=== PATIENT | male | born 1960 | race Caucasian/White ===

== ENCOUNTER → 2017-12-18 | Outpatient (CLI) | payer BC ==
[2017-12-18 14:59] VITALS: RESP 16; BMI 45.6
--- NOTE | 2017-12-18 15:41 | P.HPBAR ---
Bariatric H&P - History & Physicial H&P Date: 12/18/17 History & Physicial: Visit/CC: initial visit Patient initial contact: Initial weight: 148.381 kg Initial weight in pounds: 327.13 Height: 5 ft 11 in Initial BMI: 45.6 Last weight: Current weight: 148.381 kg Current weight in pounds: 327.13 Current BMI: 45.6 [place] body weight (based on NIH guidelines): 78.018 kg Excess body weight loss: 0.0% The patient is a 57 year-old M who presents for Bariatric Assessment. The patient presents today for new patient consultation for sleeve gastrectomy. Patient has had lifetime process obesity. His current BMI is 46. His main medical condition is a type 2 diabetes. His has a history of sleeve gastrectomy. Past Medical History Past Medical History: Cancer, Diabetes Mellitus Additional Past Medical History / Comment(s): nonhodgkins lymphoma History of Any Multi-Drug Resistant Organisms: None Reported Past Surgical History: Hernia Repair Past Anesthesia/Blood Transfusion Reactions: No Reported Reaction Smoking Status: Never smoker Surgical - Exam Vital Signs Resp 16 12/18/17 14:51 - General well developed, no distress - Eyes PERRL - ENT normal pinna - Neck no masses - Respiratory normal expansion - Cardiovascular Rhythm: regular - Abdomen Abdomen: soft, non tender Bariatric Assessment & Plan Plan: Morbid obesity with severe coronary disease. Patient's BMI is 46. I had a lengthy discussion regarding sleeve gastrectomy. I discussed with him the risks and benefits of procedure including gastric staple line leak, perforation obstruction. I also discussed the risk of reflux. The patient will see his PCP for medical clearance. He'll undergo EGD. He'll follow-up in clinic in 1 month. Bariatric Checklist Checklist: Plan: Checklist: EGD: 1. Hiatal hernia: 2. H. Pylori: HgbA1c: Vitamin D: Smoking: Never smoker Primary care physician referral: Psychiatry clearance: Cardiology clearance: Sleep study: Diet journal: VTE risk score: VTE risk level: Rehab needs at discharge:
[2017-12-18 16:50] LABS: HCT 46.8 % (39.0-53.0); HGB 15.6 gm/dL (13.0-17.5); MCH 29.6 pg (25.0-35.0); MCHC 33.2 g/dL (31.0-37.0); Mean Platelet Volume 7.5; Platelet Count 176 k/uL (150-450); RBC 5.26 m/uL (4.30-5.90); RDW 13.9 % (11.5-15.5); WBC 5.4 k/uL (3.8-10.6)
[2017-12-18 18:48] LABS: Vitamin D 25 Hydroxy 16.3 ng/mL (30.0-100.0)
[2017-12-19 04:00] LABS: Hemoglobin A1C 13.5 % (4.0-6.0)
== END | disposition home or self-care (01) ==
LOC: BARWHC3 14:16
PROVIDERS: ATTEND Surgery
DX: E66.01 Morbid (severe) obesity due to excess calories (principal); E11.9 Type 2 diabetes mellitus without complications; I25.10 Atherosclerotic heart disease of native coronary artery without angina pectoris; E55.9 Vitamin D deficiency, unspecified; Z68.42 Body mass index [BMI] 45.0-49.9, adult; Z98.890 Other specified postprocedural states
CPT/HCPCS: 36415; 82306; 82607; 83036; 85027; 93005; 99201

== ENCOUNTER 2017-12-29 08:28 | Day surgery (SDC) | payer BC ==
[2017-12-27 10:16] VITALS: BMI 45.3
[~2017-12-29 08:28] MED LIST: LACTATED RINGERS 1,000 ML IV SCH; LIDOCAINE 1% 20 ML VIAL (10MG/ML) FOR IV START INTRADERMA PRN
[2017-12-29 09:29] VITALS: RESP 18; TEMP 97.8
--- NOTE | 2017-12-29 09:36 | P.GSHP ---
History of Present Illness H&P Date: 12/29/17 Chief Complaint: GERD, morbid obesity This is a 57-year-old male who presents today for EGD. He's had issues with GERD. Patient morbid obesity BMI 45. Past Medical History Past Medical History: Cancer, Diabetes Mellitus, Hyperlipidemia Additional Past Medical History / Comment(s): nonhodgkins lymphoma History of Any Multi-Drug Resistant Organisms: None Reported Past Surgical History: Hernia Repair Additional Past Surgical History / Comment(s): FIBROID CYST REMOVED RT SHOULDER. COLONOSCOPY Past Anesthesia/Blood Transfusion Reactions: Previous Problems w/ Anesthesia Additional Past Anesthesia/Blood Transfusion Reaction / Comment(s): SLOW TO WAKE UP Smoking Status: Never smoker - Past Family History Mother Family Medical History: No Reported History Medications and Allergies Home Medications Medication Instructions Recorded Confirmed Type Multivitamins, Thera [Multivitamin 1 tab PO DAILY 12/15/17 12/27/17 History (formulary)] sitaGLIPtin PHOS/metFORMIN HCL 1 tab PO BID 12/15/17 12/27/17 History [Janumet 50-1,000 mg Tablet] Cholecalciferol (Vitamin D3) 10,000 unit PO DAILY 12/27/17 12/27/17 History [Vitamin D3] Gemfibrozil [Lopid] 600 mg PO AC-BID 12/27/17 12/27/17 History Allergies Allergy/AdvReac Type Severity Reaction Status Date / Time No Known Allergies Allergy Verified 12/27/17 10:10 Surgical - Exam Vital Signs Temp Pulse Resp BP 97.8 F 85 18 120/65 12/29/17 09:26 12/29/17 09:26 12/29/17 09:26 12/29/17 09:26 - General well developed, no distress - Eyes PERRL - ENT normal pinna - Neck no masses - Respiratory normal expansion - Cardiovascular Rhythm: regular - Abdomen Abdomen: soft, non tender Assessment and Plan Assessment: RBC BMI 45. GERD we'll perform EGD
[2017-12-29] MEDS ORDERED: PROPOFOL 10 MG/ML 20 ML VIAL IV ONE (09:39)
[2017-12-29] MEDS ORDERED: GLYCOPYRROLATE 0.2 MG/ML 2 ML VIAL ONE (09:39)
[2017-12-29] MEDS ORDERED: LIDOCAINE 1% INJ 10MG/ML (20 ML MDV) ONE (09:39)
[2017-12-29 09:43] LABS: Glucose,Whole Blood 263 mg/dL (75-99)
[2017-12-29 09:57] VITALS: PULSE 84
[2017-12-29 10:12] VITALS: BP 115/74
--- NOTE | 2017-12-29 10:22 | P.OP ---
Date of Procedure: 12/29/17 Preoperative Diagnosis: Morbid obesity, BMI 45 GERD Postoperative Diagnosis: Antral gastritis Procedure(s) Performed: EGD Anesthesia: MAC Surgeon: Stephane Pope Pathology: other (Antrum) Condition: stable Disposition: PACU Description of Procedure: The patient's placed on the endoscopy table in the lateral position. He received IV sedation. The gastroscope placed oropharynx passed in the esophagus and into the stomach. Scope was then placed through the pylorus. The first and second portion of the duodenum appeared normal. Scope was then brought back the antrum this appeared mildly inflamed. A biopsies performed. The scope was then retroflexed and remainder of the stomach appeared normal. There is no significant hiatal hernia. The GE junction was at 40 cm. The distal esophagus appeared normal. The proximal esophagus appeared normal. Scope withdrawn for patient.
== END 2017-12-29 10:50 | disposition home or self-care (01) ==
LOC: ORWHC2ENDO 08:28
PROVIDERS: ATTEND Surgery
DX: K29.50 Unspecified chronic gastritis without bleeding (principal); E66.01 Morbid (severe) obesity due to excess calories; Z68.42 Body mass index [BMI] 45.0-49.9, adult; E11.9 Type 2 diabetes mellitus without complications; Z85.72 Personal history of non-Hodgkin lymphomas; E78.5 Hyperlipidemia, unspecified; Z79.84 Long term (current) use of oral hypoglycemic drugs; Z79.899 Other long term (current) drug therapy
CPT/HCPCS: 88305; 43239; J2001; J2704

== ENCOUNTER → 2018-07-30 | Outpatient (CLI) | payer BC ==
[2018-07-30 13:45] VITALS: BMI 44.6
[2018-07-30 13:51] VITALS: BP 126/85; PULSE 93; RESP 16; TEMP 97.7
--- NOTE | 2018-07-30 18:10 | P.HPBAR ---
Bariatric H&P - History & Physicial H&P Date: 07/30/18 History & Physicial: Visit/CC: pre-surg Patient initial contact: Initial weight: 148.381 kg Initial weight in pounds: 327.12 Height: 5 ft 11 in Initial BMI: 45.6 Last weight: Current weight: 145.15 kg Current weight in pounds: 320.00 Current BMI: 44.6 [place] body weight (based on NIH guidelines): 78.018 kg Excess body weight loss: 4.5% The patient is a 58 year-old M who presents for Bariatric Assessment. Patient presents today for presurgical lap sleeve gastrectomy constipation. He is tentatively scheduled for surgery later this month. He is morbidly obese with a BMI of 45. Past Medical History Past Medical History: Cancer, Diabetes Mellitus, Hyperlipidemia Additional Past Medical History / Comment(s): nonhodgkins lymphoma History of Any Multi-Drug Resistant Organisms: None Reported Past Surgical History: Hernia Repair Additional Past Surgical History / Comment(s): FIBROID CYST REMOVED RT SHOULDER. COLONOSCOPY Past Anesthesia/Blood Transfusion Reactions: Previous Problems w/ Anesthesia Additional Past Anesthesia/Blood Transfusion Reaction / Comm: SLOW TO WAKE UP Past Psychological History: No Psychological Hx Reported Smoking Status: Never smoker Past Alcohol Use History: None Reported Past Drug Use History: None Reported - Past Family History Mother Family Medical History: No Reported History Surgical - Exam Vital Signs Temp Pulse Resp BP 97.7 F 93 16 126/85 07/30/18 13:49 07/30/18 13:49 07/30/18 13:49 07/30/18 13:49 - General well developed, no distress - Eyes PERRL - ENT normal pinna - Neck no masses - Respiratory normal expansion - Cardiovascular Rhythm: regular - Abdomen Abdomen: soft, non tender Bariatric Assessment & Plan Plan: Morbid obesity. Patient will undergo sleeve gastrectomy later this month. Over the risks and benefits of the procedure. Bariatric Checklist Checklist: Plan: Checklist: EGD: 1. Hiatal hernia: 2. H. Pylori: HgbA1c: Vitamin D: Smoking: Never smoker Primary care physician referral: Psychiatry clearance: Cardiology clearance: Sleep study: Diet journal: VTE risk score: VTE risk level: Rehab needs at discharge:
== END | disposition home or self-care (01) ==
LOC: BARWHC3 08:49
PROVIDERS: ATTEND Surgery
DX: E66.01 Morbid (severe) obesity due to excess calories (principal); Z68.41 Body mass index [BMI] 40.0-44.9, adult; Z98.890 Other specified postprocedural states
CPT/HCPCS: 97804; 99211

== ENCOUNTER → 2018-07-30 | Outpatient (CLI) | payer BC ==
[2018-07-30 15:47] LABS: Basophils # (A) 0.1 k/uL (0-0.2); Basophils % (A) 1 %; Eosinophils # (A) 0.2 k/uL (0-0.7); Eosinophils % (A) 4 %; HCT 45.4 % (39.0-53.0); HGB 15.4 gm/dL (13.0-17.5); Lymphocytes # (A) 1.6 k/uL (1.0-4.8); Lymphocytes % (A) 30 %; MCH 29.8 pg (25.0-35.0); MCHC 33.9 g/dL (31.0-37.0); MCV 88.1 fL (80.0-100.0); Mean Platelet Volume 6.5; Monocytes # (A) 0.4 k/uL (0-1.0); Monocytes % (A) 7 %; Neutrophils % (A) 56 %; Platelet Count 204 k/uL (150-450); RBC 5.15 m/uL (4.30-5.90); RDW 14.2 % (11.5-15.5); WBC 5.4 k/uL (3.8-10.6)
[2018-07-30 15:56] LABS: Glucose 156 mg/dL (74-99); Total Protein 7.7 g/dL (6.3-8.2)
[2018-07-30 15:57] LABS: ALT 44 U/L (21-72); AST 30 U/L (17-59); Albumin 4.7 g/dL (3.5-5.0); Alkaline Phosphatase 63 U/L (38-126); Anion Gap 10 mmol/L; Blood Urea Nitrogen 26 mg/dL (9-20); Calcium 10.1 mg/dL (8.4-10.2); Carbon Dioxide 27 mmol/L (22-30); Chloride 104 mmol/L (98-107); Potassium 4.4 mmol/L (3.5-5.1); Sodium 141 mmol/L (137-145); Total Bilirubin 0.4 mg/dL (0.2-1.3)
== END | disposition home or self-care (01) ==
LOC: LABPAT 14:43
PROVIDERS: ATTEND Surgery
DX: Z01.818 Encounter for other preprocedural examination (principal); Z01.812 Encounter for preprocedural laboratory examination
CPT/HCPCS: 36415; 80053; 85025; 93005

== ENCOUNTER 2018-08-08 07:43 | Inpatient (IN) | payer BC ==
[2018-08-02 11:56] VITALS: BMI 44.7
[~2018-08-08 07:43] MED LIST changes: +DEXAMETHASONE SOD PHOSPHATE 10 MG/ML 1 ML VIAL IV ONE; +ENOXAPARIN 40 MG/0.4 ML SYRINGE SQ ONE; -LACTATED RINGERS 1,000 ML IV SCH; +ONDANSETRON 4 MG/2 ML VIAL IVP ONE; +SCOPOLAMINE 1.5MG/72HR PATCH TRANSDERM ONE
[2018-08-08 09:26] LABS: Glucose,Whole Blood 131 mg/dL (75-99)
[2018-08-08 09:33] VITALS: RESP 16
[2018-08-08] MEDS: LACTATED RINGERS 1,000 ML IV SCH (09:33)
--- NOTE | 2018-08-08 09:36 | P.GSHP ---
History of Present Illness H&P Date: 08/08/18 Chief Complaint: Morbid obesity, BMI 45 This is a 58-year-old male who presents today for laparoscopic sleeve gastrectomy. Patient had lifetime problems obesity. Patient aware the risk of sleeve gastrectomy including bleeding, infection gastric perforation epigastric scarring. Past Medical History Past Medical History: Cancer, Diabetes Mellitus, Hyperlipidemia Additional Past Medical History / Comment(s): nonhodgkins lymphoma History of Any Multi-Drug Resistant Organisms: None Reported Past Surgical History: Hernia Repair Additional Past Surgical History / Comment(s): FIBROID CYST REMOVED RT SHOULDER. COLONOSCOPY. EGD Past Anesthesia/Blood Transfusion Reactions: Previous Problems w/ Anesthesia Additional Past Anesthesia/Blood Transfusion Reaction / Comment(s): SLOW TO WAKE UP Smoking Status: Never smoker - Past Family History Mother Family Medical History: No Reported History Medications and Allergies Home Medications Medication Instructions Recorded Confirmed Type sitaGLIPtin PHOS/metFORMIN HCL 1 tab PO BID 12/15/17 08/08/18 History [Janumet 50-1,000 mg Tablet] Cholecalciferol (Vitamin D3) 10,000 unit PO DAILY 12/27/17 08/08/18 History [Vitamin D3] Gemfibrozil [Lopid] 600 mg PO AC-BID 12/27/17 08/08/18 History INSULIN LISPRO (humaLOG) [humaLOG] 10 unit SQ TID 07/30/18 08/08/18 History Insulin Glargine [Lantus] 28 units SQ HS 07/30/18 08/08/18 History Allergies Allergy/AdvReac Type Severity Reaction Status Date / Time No Known Allergies Allergy Verified 08/08/18 09:26 Surgical - Exam Vital Signs Temp Pulse Resp BP Pulse Ox 96.9 F L 99 16 132/74 99 08/08/18 09:15 08/08/18 09:15 08/08/18 09:15 08/08/18 09:15 08/08/18 09:15 BMI 45 - General well developed, well nourished, no distress - Eyes PERRL - ENT normal pinna - Neck no masses - Respiratory normal expansion - Cardiovascular Rhythm: regular - Abdomen Abdomen: soft, non tender Results - Labs Abnormal Lab Results - Last 24 Hours (Table) 08/08/18 Range/Units 09:15 POC Glucose (mg/dL) 131 H (75-99) mg/dL Assessment and Plan Assessment: Morbid obesity. We'll perform laparoscopic sleeve gastrectomy.
[2018-08-08] MEDS ORDERED: GLYCOPYRROLATE 0.2 MG/ML 2 ML VIAL ONE (10:00)
[2018-08-08] MEDS ORDERED: LIDOCAINE 1% INJ 10MG/ML (20 ML MDV) ONE (10:00)
[2018-08-08] MEDS ORDERED: fentaNYL (PF) 50 MCG/ML 2 ML AMP ONE (10:00)
[2018-08-08] MEDS ORDERED: NEOSTIGMINE 1 MG/ML 10 ML VIAL ONE (10:00)
[2018-08-08] MEDS ORDERED: ROCURONIUM BROMIDE 10 MG/ML 10 ML VIAL IV ONE (10:00)
[2018-08-08] MEDS ORDERED: KETOROLAC 30 MG/ML 1 ML VIAL ONE (10:00)
[2018-08-08] MEDS ORDERED: MIDAZOLAM 2 MG/2 ML VIAL ONE (10:00)
[2018-08-08] MEDS ORDERED: ceFAZolin IN SWFI 2 GM/20 ML SYRINGE IVP ONE (10:00)
[2018-08-08] MEDS ORDERED: PROPOFOL 10 MG/ML 20 ML VIAL IV ONE (10:00)
[2018-08-08] MEDS ORDERED: SUCCINYLCHOLINE CHLORIDE 100 MG/5 ML SYR IV ONE (10:00)
[2018-08-08] MEDS ORDERED: BUPIVACAIN-EPI 0.25%-1:200,000 30 ML VIAL SQ ONE ×2 (10:28→10:31)
[2018-08-08] MEDS ORDERED: diphenhydrAMINE 50 MG/ML 1 ML VIAL IVP PRN (11:26)
[2018-08-08] MEDS ORDERED: ONDANSETRON 4 MG/2 ML VIAL IVP PRN (11:26)
[2018-08-08] MEDS ORDERED: HYOSCYAMINE ORAL DROPS 1.875 MG/15 ML BOTTLE PO PRN (11:26)
[2018-08-08] MEDS ORDERED: NALOXONE 0.4 MG/ML 1 ML VIAL IV PRN (11:26)
[2018-08-08] MEDS ORDERED: SIMETHICONE 40 MG/0.6 ML DROPS 2,000 MG/30 ML BOTTLE PO PRN (11:26)
--- NOTE | 2018-08-08 11:26 | P.OP ---
Date of Procedure: 08/08/18 Preoperative Diagnosis: Morbid obesity, BMI 45 Postoperative Diagnosis: Morbid obesity, BMI 45 Procedure(s) Performed: Laparoscopic sleeve gastrectomy Anesthesia: HEIDI Surgeon: Stephane Pope Estimated Blood Loss (ml): 5 Pathology: other (Stomach) Condition: stable Disposition: PACU Description of Procedure: The patient was placed on the operating room table in the supine position. She received general anesthesia and then was placed in dorsal lithotomy position. Her abdomen was prepped and draped in sterile fashion. The skin incision sites were anesthetized 1% local Xylocaine. And then the skin was incised with an 11 blade in the left lateral position. Using a blade less trocar under direct visualization the peritoneal cavity was entered. The abdomen was insufflated and then a 5 mm laparoscope was placed into the peritoneal cavity. A 5 mm trocar was placed in the right epigastric, and right lateral position. A 15 mm trocar was placed in the supra-umbilical position and another 5 mm trocar was placed in the left lateral position. The left lateral lobe of the liver was retracted. The stomach was visualized. The greater curvature of the stomach was then dissected using the Harmonic scissors. The dissection occurred approximately 5 cm from the pylorus to the level of the left pawan. There was no hiatal hernia seen. At this point a 40-Niuean bougie dilator was placed the oropharynx and passed into the esophagus and into the stomach by the CLE[employer] RICE BROKER. The sleeve gastrectomy was performed by using the powered echelon stapler with a seam guard buttress material. Sequential firings of the stapler were performed. The gastric remnant was then brought out through the 15 mm trocar site. The dilator was withdrawn. And a orogastric tube was replaced into the stomach. The stomach was insufflated with 200 mL of methylene blue normal saline. There was no evidence of extravasation. The abdomen was irrigated there is no bleeding seen. The Devon-Yolanda device was used to close the 15 mm trocar with 0 Vicryl. Skin was closed with interrupted 3-0 Monocryl sutures once the trochars withdrawn. Dermabond dressing was applied. Patient was sent to recovery in stable condition.
[2018-08-08 11:45] LABS: Glucose,Whole Blood 195 mg/dL (75-99)
[2018-08-08] MEDS: HYDROmorphone 0.5 MG/0.5 ML SYRINGE IVP PRN ×2 (12:03→12:14)
[2018-08-08] MEDS ORDERED: ONDANSETRON 4 MG/2 ML VIAL IVP ONE (12:06)
[2018-08-08] MEDS: ALBUTEROL NEBULIZED 2.5 MG/3 ML INHALATION SCH ×3 (12:20→20:31)
[2018-08-08] MEDS: KETOROLAC 30 MG/ML 1 ML VIAL IVP SCH ×2 (13:23→15:56)
[2018-08-08] MEDS: 0.9% NACL WITH KCL 20 MEQ/L 1,000 ML IV SCH ×2 (13:48→21:53)
[2018-08-08] MEDS: AMPICILLIN-SULBACTAM 3 GM in SODIUM CHLORIDE 0.9% 100 ML IVPB SCH ×2 (13:50→18:03)
[2018-08-08 17:54] LABS: Glucose,Whole Blood 162 mg/dL (75-99)
--- NOTE | 2018-08-08 17:59 | P.CONS ---
History of Present Illness - Reason for Consult Consult date: 08/08/18 - History of Present Illness The patient is a 58 yo M with a PMH of DM and morbid obesity who is being seen post-op from a sleeve gastrectomy earlier today. The patient endorsed 4/10 abdominal post-surgical pain but otherwise denied any active complaints including fever, chills, nausea, vomiting, dizziness, headache, numbness, tingling, chest pain, or SOB. He notes that prior to the surgery, he had stopped taking Insulin therapy since his calorie restricted diet was making him have hypoglycemic episodes. He was only taking Glyburide and Janumet bid. He notes that most recently, his FS at home were 190-240s fasting in am and similar ranges post-prandial. Review of Systems Pertinent positives and negatives as discussed in HPI, a complete review of systems was performed and all other systems are negative. Past Medical History Past Medical History: Cancer, Diabetes Mellitus, Hyperlipidemia Additional Past Medical History / Comment(s): nonhodgkins lymphoma History of Any Multi-Drug Resistant Organisms: None Reported Past Surgical History: Hernia Repair Additional Past Surgical History / Comment(s): FIBROID CYST REMOVED RT SHOULDER. COLONOSCOPY. EGD Past Anesthesia/Blood Transfusion Reactions: Previous Problems w/ Anesthesia Additional Past Anesthesia/Blood Transfusion Reaction / Comm: SLOW TO WAKE UP Past Psychological History: No Psychological Hx Reported Smoking Status: Never smoker Past Alcohol Use History: None Reported Past Drug Use History: None Reported - Past Family History Mother Family Medical History: No Reported History Medications and Allergies Home Medications Medication Instructions Recorded Confirmed Type sitaGLIPtin PHOS/metFORMIN HCL 1 tab PO BID 12/15/17 08/08/18 History [Janumet 50-1,000 mg Tablet] Cholecalciferol (Vitamin D3) 10,000 unit PO DAILY 12/27/17 08/08/18 History [Vitamin D3] Gemfibrozil [Lopid] 600 mg PO AC-BID 12/27/17 08/08/18 History INSULIN LISPRO (humaLOG) [humaLOG] 10 unit SQ TID 07/30/18 08/08/18 History Insulin Glargine [Lantus] 28 units SQ HS 07/30/18 08/08/18 History Allergies Allergy/AdvReac Type Severity Reaction Status Date / Time No Known Allergies Allergy Verified 08/08/18 13:24 Physical Exam Vitals: Vital Signs Temp Pulse Resp BP Pulse Ox 08/08/18 14:15 90 16 137/83 97 08/08/18 14:00 99 16 120/83 98 08/08/18 13:45 90 16 139/89 97 08/08/18 13:30 89 16 145/88 97 08/08/18 13:15 91 16 146/89 98 08/08/18 13:00 84 16 144/79 94 L 08/08/18 12:55 97 08/08/18 12:45 87 16 130/78 97 08/08/18 12:30 97.8 F 76 16 137/77 97 08/08/18 12:15 74 16 128/75 97 08/08/18 12:00 68 16 127/74 97 08/08/18 11:45 64 16 132/74 100 08/08/18 11:30 65 16 132/74 100 08/08/18 11:19 97 F L 66 16 132/72 96 08/08/18 09:15 96.9 F L 99 16 132/74 99 Intake and Output 08/08/18 08/08/18 08/08/18 06:59 14:59 22:59 Intake Total 850 Output Total 5 Balance 845 Intake: IV 850 Output: Estimated Blood Loss 5 General: [non toxic], [no distress], [appears at stated age], [morbidly obese] Derm: [no unusual rashes/lesions] [no unusual ecchymoses], [warm], [dry] Head: [atraumatic], [normocephalic], [symmetric] Eyes: [EOMI], [no lid lag], [anicteric sclera], [pupils equal round reactive to light] ENT: [Nose and ears atraumatic], [no thrush], [no pharyngeal erythema] Neck: [No thyromegaly], [no cervical lymphadenopathy], [trachea midline], [ supple] Mouth: [no lip lesion], [mucus membranes moist] Cardiovascular: [S1S2 reg], [no murmur], [positive posterior tibial pulse bilateral], [no edema], [capillary refill less than 2 seconds] Lungs: [CTA bilateral], [no rhonchi, no rales] , [no accessory muscle use] Abdominal: [soft], [post-surgical abdomen w/ laproscopic incisions, clean], [no appreciable organomegaly], [normal bowel sounds] Ext: [no gross muscle atrophy], [muscle strength 5 out of 5 in all 4 extremities grossly], [no contractures], Neuro: [ CN II-XI grossly intact], [light touch intact all 4 extremities], [ finger to nose within normal limits], Psych: [Alert], [oriented], [appropriate affect] Results Labs: Abnormal Lab Results - Last 24 Hours (Table) 08/08/18 08/08/18 Range/Units 09:15 11:42 POC Glucose (mg/dL) 131 H 195 H (75-99) mg/dL Assessment and Plan Plan: Diabetes Mellitus - Will c/w Insulin sliding scale only at this time since FS in desired range and patient is NPO - FS q6h with CELIO Post-operative pain -Currently on Dilaudid and Toradol S/p sleeve gastrectomy -As per surgical service DVT//GI prop -Lovenox -Protonix
[2018-08-08] MEDS: INSULIN ASPART 100 UNIT/ML 1 ML 10 ML VIAL SQ SCH ×2 (18:03→21:53)
[2018-08-08] MEDS: HYDROmorphone 1 MG/ML 1 ML SYRINGE IVP PRN (18:26)
[2018-08-08] MEDS: ENOXAPARIN 40 MG/0.4 ML SYRINGE SQ SCH (21:53)
[2018-08-08 21:54] LABS: Glucose,Whole Blood 150 mg/dL (75-99)
[2018-08-09] MEDS: KETOROLAC 30 MG/ML 1 ML VIAL IVP SCH ×2 (00:49→06:09)
[2018-08-09 01:24] VITALS: TEMP 97.7
[2018-08-09] MEDS: HYDROmorphone 1 MG/ML 1 ML SYRINGE IVP PRN ×2 (01:26→10:10)
[2018-08-09] MEDS: 0.9% NACL WITH KCL 20 MEQ/L 1,000 ML IV SCH (04:08)
[2018-08-09 04:21] LABS: Glucose,Whole Blood 118 mg/dL (75-99)
[2018-08-09] MEDS: INSULIN ASPART 100 UNIT/ML 1 ML 10 ML VIAL SQ SCH ×2 (05:56→09:22)
[2018-08-09 07:38] LABS: Basophils % (A) 1 %; Eosinophils # (A) 0.1 k/uL (0-0.7); Eosinophils % (A) 3 %; HCT 39.5 % (39.0-53.0); HGB 13.7 gm/dL (13.0-17.5); Lymphocytes # (A) 1.6 k/uL (1.0-4.8); Lymphocytes % (A) 29 %; MCH 30.5 pg (25.0-35.0); MCHC 34.7 g/dL (31.0-37.0); MCV 87.9 fL (80.0-100.0); Mean Platelet Volume 6.7; Monocytes # (A) 0.4 k/uL (0-1.0); Monocytes % (A) 7 %; Neutrophils # (A) 3.2 k/uL (1.3-7.7); Neutrophils % (A) 59 %; Platelet Count 173 k/uL (150-450); RBC 4.49 m/uL (4.30-5.90); RDW 14.3 % (11.5-15.5); WBC 5.4 k/uL (3.8-10.6)
[2018-08-09 07:50] LABS: Anion Gap 9 mmol/L; Blood Urea Nitrogen 20 mg/dL (9-20); Calcium 8.8 mg/dL (8.4-10.2); Carbon Dioxide 21 mmol/L (22-30); Chloride 111 mmol/L (98-107); Magnesium 1.9 mg/dL (1.6-2.3); Phosphorus 3.4 mg/dL (2.5-4.5); Potassium 4.2 mmol/L (3.5-5.1); Sodium 141 mmol/L (137-145)
[2018-08-09] MEDS ORDERED: 0.9% NACL WITH KCL 20 MEQ/L 1,000 ML IV SCH (08:00)
[2018-08-09 08:22] VITALS: BP 130/80; PULSE 85
--- NOTE | 2018-08-09 08:26 | FL ---
EXAMINATION TYPE: FL UGI DATE OF EXAM: 08/09/2018 CLINICAL HISTORY: Status post gastric sleeve Contrast: Omnipaque 350 50 mL, 30 sec fluoro. The patient ingested contrast without difficulty or delay. Noted are postsurgical changes of gastric sleeve. There is no evidence for leak or obstruction. Contrast is noted within the duodenum. IMPRESSION: Post-surgical change of gastric sleeve without evidence for obstruction or leak at this point in time.
[2018-08-09] MEDS ORDERED: PANTOPRAZOLE 40 MG/10 ML VIAL IV SCH (09:00)
[2018-08-09] MEDS: ALBUTEROL NEBULIZED 2.5 MG/3 ML INHALATION SCH ×2 (09:00→12:19)
[2018-08-09] MEDS: LACTATED RINGERS 1,000 ML IV SCH (09:21)
[2018-08-09] MEDS: ENOXAPARIN 40 MG/0.4 ML SYRINGE SQ SCH (10:11)
[2018-08-09 12:24] LABS: Glucose,Whole Blood 148 mg/dL (75-99)
--- NOTE | 2018-08-09 13:58 | P.PN ---
Subjective Progress Note Date: 08/09/18 The patient was seen and examined at the bedside white seated in a chair comfortably. He notes that his abdominal pain has improved and is 3/10, most notably w/ movement. He denied any other active complaints. Notes he hasn't had a BM but has been urinating. Denied fever, chills, chest pain, SOB, nausea, vomiting, dysuria, or headaches. Objective - Vital Signs Vital signs: Vital Signs Temp 97.7 F 08/09/18 07:00 Pulse 85 08/09/18 07:00 Resp 16 08/09/18 07:00 BP 130/80 08/09/18 07:00 Pulse Ox 97 08/09/18 09:14 Intake & Output 08/08/18 08/09/18 08/09/18 18:59 06:59 18:59 Intake Total 850 1200 Output Total 5 700 Balance 845 500 Intake: IV 850 Intake, IV Titration 1200 Amount 0.9% NaCl with KCl 20 Meq 1200 /l 1,000 ml @ 150 mls/hr IV .[id number] [facility] Rx#: [id number] Output: Urine 700 Estimated Blood Loss 5 Other: Voiding Method Toilet # Voids 4 - Exam General: Non-toxic, in no acute distress, appears stated age, morbidly obese HEENT: NC/AT, anicteric sclerae, moist conjunctiva, no lid-lag, PERRLA Cardiovascular: S1/S2 wnl, no murmurs, rubs, or gallops Lungs: Clear to auscultation, normal respiratory effort, no accessory muscle use Abdominal: Soft, laproscopy incisions - healing, mild tenderness, no rebound or rigidity noted Skin: Warm, dry Extremities: No edema or contractures, chronic venous stasis changed noted Psychiatric: Alert and oriented to person, place and time, appropriate affect, Intact judgment Neuro: CN II-XII grossly intact, Strength 5/5 in all 4 extremities, Speech intact, Sensation to light touch grossly intact throughout - Labs CBC & Chem 7: 08/09/18 06:44 08/09/18 06:44 Labs: Abnormal Lab Results - Last 24 Hours (Table) 08/08/18 08/08/18 08/09/18 Range/Units 17:40 21:43 04:10 Chloride (98-107) mmol/L Carbon Dioxide (22-30) mmol/L POC Glucose (mg/dL) 162 H 150 H 118 H (75-99) mg/dL 08/09/18 08/09/18 Range/Units 06:44 12:12 Chloride 111 H (98-107) mmol/L Carbon Dioxide 21 L (22-30) mmol/L POC Glucose (mg/dL) 148 H (75-99) mg/dL Assessment and Plan Plan: Diabetes Mellitus - FS q6h with CELIO - Will hold off on any basal insulin at this time. Patient advised to resume only the oral hypoglycemics upon discharge due to decreased insulin demand. Post-operative pain -Currently on Dilaudid and Toradol S/p sleeve gastrectomy -As per surgical service DVT//GI prop -Lovenox -Protonix
--- NOTE | 2018-08-09 14:13 | P.DS ---
Providers Date of admission: 08/08/18 07:43 Expected date of discharge: 08/09/18 Attending physician: Stephane Pope Consults: 08/08/18 11:26 Consult Physician Routine Consulting Provider: Laura Hernandez Consult Reason/Comments: Medical management Do you want consulting provider notified?: Yes Primary care physician: Harris Hamilton DO Hospital Course: This is a 58-year-old male who underwent laparoscopic sleeve gastrectomy. Please see hospital chart for details. Procedures: Laparoscopic sleeve gastrectomy Patient Condition at Discharge: Good Plan - Discharge Summary Discharge Rx Participant: Yes New Discharge Prescriptions: New Docusate [Colace] 100 mg PO BID #20 capsule HYDROcodone/APAP 7.5-325MG [[place] 7.5-325] 1 tab PO Q4H PRN 3 Days #18 tab PRN Reason: Pain Bisacodyl [Dulcolax] 5 mg PO DAILY PRN #10 tablet.dr PRN Reason: Constipation Ondansetron Odt [Zofran Odt] 4 mg PO Q8HR PRN #9 tab PRN Reason: Nausea Simethicone 40 mg/0.6 ml Drops [Mylicon Drops] 40 mg PO PCHS PRN #30 ml PRN Reason: Gas No Action sitaGLIPtin PHOS/metFORMIN HCL [Janumet 50-1,000 mg Tablet] 1 tab PO BID Gemfibrozil [Lopid] 600 mg PO AC-BID Cholecalciferol (Vitamin D3) [Vitamin D3] 10,000 unit PO DAILY Insulin Glargine [Lantus] 28 units SQ HS INSULIN LISPRO (humaLOG) [humaLOG] 10 unit SQ TID Discharge Medication List sitaGLIPtin PHOS/metFORMIN HCL [Janumet 50-1,000 mg Tablet] 1 tab PO BID [History] Cholecalciferol (Vitamin D3) [Vitamin D3] 10,000 unit PO DAILY 12/27/17 [History ] Gemfibrozil [Lopid] 600 mg PO AC-BID 12/27/17 [History] INSULIN LISPRO (humaLOG) [humaLOG] 10 unit SQ TID 07/30/18 [History] Insulin Glargine [Lantus] 28 units SQ HS 07/30/18 [History] Bisacodyl [Dulcolax] 5 mg PO DAILY PRN #10 tablet.dr 08/09/18 [Rx] Docusate [Colace] 100 mg PO BID #20 capsule 08/09/18 [Rx] HYDROcodone/APAP 7.5-325MG [[place] 7.5-325] 1 tab PO Q4H PRN 3 Days #18 tab 08/09 [Rx] Ondansetron Odt [Zofran Odt] 4 mg PO Q8HR PRN #9 tab 08/09/18 [Rx] Simethicone 40 mg/0.6 ml Drops [Mylicon Drops] 40 mg PO PCHS PRN #30 ml [Rx] Follow up Appointment(s)/Referral(s): [facility] [[facility]-STAFF] - 2 Weeks Discharge Disposition: HOME SELF-CARE
[2018-08-09] MEDS ORDERED: HYDROcodone/APAP 7.5-325MG 1 EACH TAB PO ONE (15:08)
[2018-08-10] MEDS ORDERED: BISACODYL 5 MG TABLET.DR PO PRN (08:00)
== END 2018-08-09 15:55 | disposition home or self-care (01) | DRG 621 ==
LOC: 2ORMAIN 07:43 → 4SSUR 12:02
PROVIDERS: ADMIT Surgery; ATTEND Surgery
PROC: 0DB64Z3 Excision of Stomach, Percutaneous Endoscopic Approach, Vertical (ICD-10-PCS; principal; 2018-08-08 10:15)
DX: E66.01 Morbid (severe) obesity due to excess calories (principal); Z68.42 Body mass index [BMI] 45.0-49.9, adult; E11.9 Type 2 diabetes mellitus without complications; E78.5 Hyperlipidemia, unspecified; Z79.4 Long term (current) use of insulin; Z79.899 Other long term (current) drug therapy; Z85.72 Personal history of non-Hodgkin lymphomas
CPT/HCPCS: 74240; 80051; 82310; 82565; 83735; 84100; 84520; 85025; 88307

== ENCOUNTER → 2018-08-15 | Outpatient (CLI) | payer BC ==
[2018-08-15 11:56] VITALS: BMI 42.3
[2018-08-15 12:26] VITALS: BP 119/75; PULSE 83; TEMP 97.7
== END | disposition home or self-care (01) ==
LOC: BARWHC3 10:39
PROVIDERS: ATTEND Surgery
DX: E66.01 Morbid (severe) obesity due to excess calories (principal); Z68.41 Body mass index [BMI] 40.0-44.9, adult
CPT/HCPCS: 97802; 99211

== ENCOUNTER → 2018-09-10 | Outpatient (CLI) | payer BC ==
[2018-09-10 13:30] VITALS: BP 112/78; PULSE 108; RESP 16; TEMP 97.4; BMI 40.1
--- NOTE | 2018-09-10 14:42 | P.HPBAR ---
Bariatric H&P - History & Physicial H&P Date: 09/10/18 History & Physicial: Visit/CC: sleeve follow-up Patient initial contact: Initial weight: 148.381 kg Initial weight in pounds: 327.12 Height: 5 ft 11 in Initial BMI: 45.6 Last weight: Current weight: 130.635 kg Current weight in pounds: 288.00 Current BMI: 40.1 [place] body weight (based on NIH guidelines): 78.018 kg Excess body weight loss: 25.2% The patient is a 58 year-old M who presents for Bariatric Assessment. Patient presents today for sleeve gastrectomy follow-up. He is doing quite well. He's had some minimal GERD. He's had excellent weight loss. Past Medical History Past Medical History: Cancer, Diabetes Mellitus, Hyperlipidemia Additional Past Medical History / Comment(s): nonhodgkins lymphoma History of Any Multi-Drug Resistant Organisms: None Reported Past Surgical History: Hernia Repair Additional Past Surgical History / Comment(s): FIBROID CYST REMOVED RT SHOULDER. COLONOSCOPY. EGD Past Anesthesia/Blood Transfusion Reactions: Previous Problems w/ Anesthesia Additional Past Anesthesia/Blood Transfusion Reaction / Comm: SLOW TO WAKE UP Past Psychological History: No Psychological Hx Reported Smoking Status: Never smoker Past Alcohol Use History: None Reported Past Drug Use History: None Reported - Past Family History Mother Family Medical History: No Reported History Surgical - Exam Vital Signs Temp Pulse Resp BP 97.4 F L 108 H 16 112/78 09/10/18 13:28 09/10/18 13:28 09/10/18 13:28 09/10/18 13:28 - General well developed, well nourished, no distress - Eyes PERRL - ENT normal pinna - Neck no masses - Respiratory normal expansion - Cardiovascular Rhythm: regular - Abdomen Abdomen: soft, non tender Bariatric Assessment & Plan Plan: Status post sleeve surgery. Patient is doing quite well. His GERD is minimal will be observed. He'll follow-up in 4 weeks. Bariatric Checklist Checklist: Plan: Checklist: EGD: 1. Hiatal hernia: 2. H. Pylori: HgbA1c: Vitamin D: Smoking: Never smoker Primary care physician referral: Psychiatry clearance: Cardiology clearance: Sleep study: Diet journal: VTE risk score: VTE risk level: Rehab needs at discharge:
== END | disposition home or self-care (01) ==
LOC: BARWHC3 12:30
PROVIDERS: ATTEND Surgery
DX: Z48.815 Encounter for surgical aftercare following surgery on the digestive system (principal); Z98.84 Bariatric surgery status
CPT/HCPCS: 97803; 99211

== ENCOUNTER → 2019-05-06 | Outpatient (CLI) | payer BC ==
[2019-05-06 14:37] VITALS: BP 114/73; PULSE 90; TEMP 98.3; BMI 36.1
[2019-05-06 15:13] LABS: HCT 42.9 % (39.0-53.0); HGB 14.5 gm/dL (13.0-17.5); MCH 30.2 pg (25.0-35.0); MCHC 33.9 g/dL (31.0-37.0); MCV 89.1 fL (80.0-100.0); Mean Platelet Volume 7.2; Platelet Count 173 k/uL (150-450); RBC 4.82 m/uL (4.30-5.90); RDW 13.3 % (11.5-15.5); WBC 6.4 k/uL (3.8-10.6)
--- NOTE | 2019-05-06 15:40 | P.HPBAR ---
Bariatric H&P - History & Physicial H&P Date: 05/06/19 History & Physicial: Visit/CC: 9 mos sleeve f/u Patient initial contact: Initial weight: 148.381 kg Initial weight in pounds: 327.12 Height: 5 ft 11 in Initial BMI: 45.6 Last weight: Current weight: 117.48 kg Current weight in pounds: 259.00 Current BMI: 36.1 Susan body weight (based on NIH guidelines): 78.018 kg Excess body weight loss: 43.9% The patient is a 59 year-old M who presents for Bariatric Assessment. She presents today for sleeve gastrectomy follow-up. He is doing quite well. He's had some mild GERD. Past Medical History Past Medical History: Cancer, Diabetes Mellitus, Hyperlipidemia Additional Past Medical History / Comment(s): nonhodgkins lymphoma History of Any Multi-Drug Resistant Organisms: None Reported Past Surgical History: Bariatric Surgery, Hernia Repair Additional Past Surgical History / Comment(s): FIBROID CYST REMOVED RT SHOULDER. COLONOSCOPY sleeve gastrectomy 08-08-18. EGD Past Anesthesia/Blood Transfusion Reactions: Previous Problems w/ Anesthesia Additional Past Anesthesia/Blood Transfusion Reaction / Comm: SLOW TO WAKE UP Past Psychological History: No Psychological Hx Reported Smoking Status: Never smoker Past Alcohol Use History: None Reported Past Drug Use History: None Reported - Past Family History Mother Family Medical History: No Reported History Surgical - Exam Vital Signs Temp Pulse BP 98.3 F 90 114/73 05/06/19 14:33 05/06/19 14:33 05/06/19 14:33 - General well developed, well nourished, no distress - Eyes PERRL - ENT normal pinna - Neck no masses - Respiratory normal expansion - Cardiovascular Rhythm: regular - Abdomen Abdomen: soft Results - Labs 05/06/19 14:59 Bariatric Assessment & Plan Plan: Cystoscopy sleeve gastrectomy. Patient is doing well. His GERD is minimal Bariatric Checklist Checklist: Plan: Checklist: EGD: 1. Hiatal hernia: 2. H. Pylori: HgbA1c: Vitamin D: Smoking: Never smoker Primary care physician referral: Dr. Cornejo ([place], [place]) Psychiatry clearance: Cardiology clearance: Sleep study: Diet journal: VTE risk score: VTE risk level: Rehab needs at discharge:
[2019-05-06 19:31] LABS: Vitamin D 25 Hydroxy 29.2 ng/mL (30.0-100.0)
[2019-05-06 19:38] LABS: African American GFR (CKD) 95.1 (60.0-200.0); Albumin 4.3 g/dL (3.80-4.90); Albumin/Globulin Ratio 2.26 (1.60-3.17); Anion Gap 5.5 mmol/L (4.00-12.00); Calcium 9.2 mg/dL (8.7-10.3); Carbon Dioxide 28.5 mmol/L (21.6-31.8); Globulin 1.9 g/dL (1.6-3.3); Potassium 4.3 mmol/L (3.5-5.5); Total Bilirubin 0.4 mg/dL (0.3-1.2); Total Protein 6.2 g/dL (6.2-8.2)
[2019-05-06 20:42] LABS: Hemoglobin A1C 7.5 % (4.0-6.0)
== END ==
LOC: BARWHC3 13:54
PROVIDERS: ATTEND Surgery
DX: Z48.815 Encounter for surgical aftercare following surgery on the digestive system (principal); K21.9 Gastro-esophageal reflux disease without esophagitis; E66.01 Morbid (severe) obesity due to excess calories; E89.1 Postprocedural hypoinsulinemia; E55.9 Vitamin D deficiency, unspecified; Z98.84 Bariatric surgery status; Z68.36 Body mass index [BMI] 36.0-36.9, adult
CPT/HCPCS: 80053; 82306; 82607; 83036; 84425; 85027; 99211